=== PATIENT | male | born 1940 | race Caucasian/White ===

== ENCOUNTER → 2016-08-26 | Outpatient (CLI) | payer MEDICARE, BC ==
[2016-05-15 11:00] VITALS: BP 125/57
[~2016-08-26] MED LIST: ALPR0.254 PO; AMLO10TA2 PO; AMLO1CAP15 PO; AMOX500T PO; ASPI81TA2 PO; BUDE10.2 IH; CHOL100013 PO; CLOP75TA PO; DUTA0.5C PO; ESOM20CA PO; ESOM40CA PO; GLIP1TAB5 PO; GLIP5TAB10 PO; HYDR12.53 PO; HYDR25TA9 PO; INSU100I13 SQ; INSU100V8 SQ; SIMV10TA3 PO; SIMV40TA3 PO; TIOT18CA IH
--- NOTE | 2016-08-26 11:47 | RAD ---
CT of the chest without contrast, 08/26/2016: History: Follow-up pulmonary nodule Noncontrast scans were obtained with multiplanar reconstructions produced. Comparison is made to a study from 05/13/2016. There is an 8 mm noncalcified, irregularly marginated nodule in the superior segment of the left lower lobe as seen on image 73 of series #3. It is unchanged since 05/13/2016 as well as an older exam from 01/30/2016. There is streaky atelectasis/infiltrate in the posterior aspect of the left upper lobe abutting the oblique fissure and extending into the lingular region. This density is new. On the previous study there was a similar elongated opacity located more anteriorly the right upper lobe which has resolved. There is a tiny elongated tubular appearing opacity within the minor fissure as best seen on image 149 of series #3. It is slightly lobulated in configuration. This probably represents an enlarged vascular structure or lymphatic vessel. This was not present on the previous study. There is a calcified granuloma in the right lung base posteromedially. There are a few other scattered linear parenchymal opacities in both lungs compatible with scars. No pleural fluid is evident. There is extensive calcific plaquing of the thoracic aorta and its branches including the coronary arteries. No aortic aneurysm is seen. A vascular stent is present in the proximal left subclavian artery. There are calcified mediastinal and hilar lymph nodes compatible with old granulomatous disease. No mediastinal adenopathy is seen. IMPRESSION: 1. Stable small nodule in the superior segment of the left lower lobe. 2. New elongated area of atelectasis/infiltrate in the posterior aspect of the left upper lobe extending into the lingula. 3. A similar area of atelectasis seen more anteriorly in the left upper lobe on the previous study has resolved. 4. New tiny elongated structure along the minor fissure on the right suggesting an enlarged vascular or lymphatic structure. 5. Extensive calcific plaquing of the aorta and coronary arteries. PQRS Compliance Statement: One or more of the following individualized dose reduction techniques were utilized for this examination: 1. Automated exposure control 2. Adjustment of the mA and/or kV according to patient size 3. Use of iterative reconstruction technique
== END | disposition home or self-care (01) ==
LOC: CT 09:41
PROVIDERS: ATTEND Internal Medicine Critical Care Medicine
DX: J98.11 Atelectasis (principal); I70.0 Atherosclerosis of aorta
CPT/HCPCS: 71250

== ENCOUNTER → 2017-03-07 | Outpatient (CLI) | payer MEDICARE, BC ==
[2016-05-15 11:00] VITALS: BP 125/57
[~2017-03-07] MED LIST changes: +ASPI-630 PO; -ASPI81TA2 PO; +BUME2TAB PO; +MAGN400T3 PO; +SUCR1TAB PO
--- NOTE | 2017-03-07 11:07 | RAD ---
CT chest without contrast 03/07/2017 at 0949 hours Indication: Lung nodule Comparison: CT chest 08/26/2016 Technique: Multiple axial noncontrast CT images of the chest were obtained. Coronal and sagittal reformats are provided. Findings: Previously 5 x 5 x 4 mm spiculated nodule in the superior segment left lower lobe currently measures 6 x 10 x 8 mm (series 3, image 75 and series 5, image 75). There is atelectasis and/or scarring involving the lingula. Interval improvement of ventral wall thickening. There is a 4 mm groundglass nodule in the right upper lobe anteriorly (series 3, image 148), new from the prior examination. There are no pathologically enlarged axillary, mediastinal or hilar lymph nodes. Heart size is within normal limits. Three-vessel coronary vascular calcic dictation is identified. Thoracic aorta is normal in course and caliber with moderate atherosclerotic calcification. Left subclavian stent is present. No suspicious osseous lesions are identified. No significant abnormality is identified in the visualized upper abdomen. Impression: Interval growth of a previously 5 x 5 x 4 mm spiculated nodule, currently measuring 6 x 10 x 8 mm. Findings are suspicious for a primary lung malignancy given the growth. Further evaluation with PET/CT or tissue sampling is recommended. No definite pathologically enlarged mediastinal or hilar lymph nodes are present. Visualized portions of the lower neck and upper abdomen are normal. PQRS Compliance Statement: One or more of the following individualized dose reduction techniques were utilized for this examination: 1. Automated exposure control 2. Adjustment of the mA and/or kV according to patient size 3. Use of iterative reconstruction technique
== END | disposition home or self-care (01) ==
LOC: CT 09:30
PROVIDERS: ATTEND Internal Medicine Critical Care Medicine
DX: R91.1 Solitary pulmonary nodule (principal)
CPT/HCPCS: 71250

== ENCOUNTER → 2017-03-10 | Outpatient (CLI) | payer MEDICARE, BC ==
[2017-03-10] VITALS (12 sets, daily range): BP systolic 123–239; BP diastolic 60–98
[~2017-03-10] VITALS: Ht 170.2 cm; Wt 59.4 kg
[~2017-03-10] MED LIST changes: +GELATIN SPONGE SIZE 12-7MM SPONGE. TP ONE; +LABETALOL 20 MG/4 ML DISP.SYRIN. IVP ONE; +LABETALOL 20 MG/4 ML DISP.SYRIN. IVP PRN; +LIDOCAINE 1% / SOD BICARB 8.4% 20 ML VIAL. IJ ONE; +MIDAZOLAM HCL/PF 2 MG/2 ML VIAL. IV ONE; +fentaNYL PF VIAL 100 MCG/2 ML VIAL IV ONE
[2017-03-10 08:59] LABS: BASO # 0.1 x10^3/uL (0.0-0.2); BASO % 1 % (0-3); EOS % 1 % (0-3); HEMATOCRIT 40.6 % (39.0-53.0); HEMOGLOBIN 13.7 g/dL (13.0-17.5); LYMPH # 1.6 x10^3/uL (1.0-4.8); LYMPH % 22 % (24-48); MEAN CORPUSCULAR HEMOGLOBIN 31 pg (25-35); MEAN CORPUSCULAR HGB CONC 34 g/dL (31-37); MEAN CORPUSCULAR VOLUME 90 fL (79-100); MONO % 10 % (0-9); NEUT % 66 % (31-73); PLATELET COUNT 223 x10^3/uL (140-400); RED BLOOD COUNT 4.49 x10^6/uL (4.30-5.70); RED CELL DISTRIBUTION WIDTH 15.2 % (11.5-14.5); WHITE BLOOD COUNT 7.4 x10^3/uL (4.0-11.0)
[2017-03-10 09:04] LABS: CALCIUM 9.3 mg/dL (8.5-10.1); GFR 72.8; POTASSIUM 3.8 mmol/L (3.5-5.1)
[2017-03-10 09:08] LABS: INR 0.9 (0.8-1.1)
--- NOTE | 2017-03-10 12:31 | RAD ---
Ultrasound-guided biopsy, left kidney 03/10/2017 Indication: Proteinuria Discussion: The risks and benefits of the procedure were discussed with the patient. Informed consent was obtained. The patient was brought to the interventional suite and placed in the prone position. A timeout procedure was performed. Conscious sedation was administered. Antihypertensive medication was administered to maintain systolic blood pressure less than 160 mmHg. Ultrasound evaluation demonstrated a left kidney minimal percutaneous biopsy. Once an appropriate site for skin entry been selected 1% lidocaine without epinephrine was administered for local anesthesia. Under direct ultrasound guidance a 17-gauge guiding needle was advanced into the inferior posterior renal cortex. Core biopsy samples were obtained and divided amongst formalin and Patrice's solution. Gelfoam embolization of the biopsy tract was performed as a guiding needle was removed. Manual pressure was held for several minutes. Repeat ultrasound performed demonstrating no significant perinephric hematoma or other evidence of immediate complication. The patient remained clinically stable tolerating the procedure well. A sterile dressing was applied. The patient was transferred to the posterior pararenal area for monitoring. The procedures performed under conscious sedation including continuous cardiopulmonary monitoring via dedicated sedation nurse. Sedation time 40 minutes Impression: Status post ultrasound-guided biopsy of the left kidney
== END | disposition home or self-care (01) ==
LOC: INTRAD 08:31
PROVIDERS: ATTEND Internal Medicine Nephrology
DX: R80.9 Proteinuria, unspecified (principal); E78.00 Pure hypercholesterolemia, unspecified; I10 Essential (primary) hypertension; J44.9 Chronic obstructive pulmonary disease, unspecified; M19.91 Primary osteoarthritis, unspecified site; E11.51 Type 2 diabetes mellitus with diabetic peripheral angiopathy without gangrene; F41.9 Anxiety disorder, unspecified; Z79.01 Long term (current) use of anticoagulants; Z72.0 Tobacco use; Z86.39 Personal history of other endocrine, nutritional and metabolic disease
CPT/HCPCS: 36415; 50200; 76942; 80048; 85025; 85610; 99152; 99153; J2250; J3010; J3490

== ENCOUNTER → 2017-04-03 | Outpatient (CLI) | payer MEDICARE, BC ==
[2017-03-24 15:00] VITALS: BP 181/52
[~2017-04-03] MED LIST changes: +AMLO1TAB12 PO; -GELATIN SPONGE SIZE 12-7MM SPONGE. TP ONE; -LABETALOL 20 MG/4 ML DISP.SYRIN. IVP ONE; -LABETALOL 20 MG/4 ML DISP.SYRIN. IVP PRN; +LEVO500T59 PO; -LIDOCAINE 1% / SOD BICARB 8.4% 20 ML VIAL. IJ ONE; +LOSA50TA2 PO; +METF1000 PO; -MIDAZOLAM HCL/PF 2 MG/2 ML VIAL. IV ONE; +VENTOLIN HFA18 GM INH; -fentaNYL PF VIAL 100 MCG/2 ML VIAL IV ONE
--- NOTE | 2017-04-03 14:26 | RAD ---
PET ONCOLOGY CLINICAL INDICATION: i lung nodule. FDG PET-CT of the Body TECHNIQUE: The patient received an IV injection of 13.66 mCi 18F-FDG in the left antecubital fossa. After an initial uptake phase of approximately 60-90 minutes, a CT scan without oral contrast, without IV contrast was acquired. Subsequently, positron emission tomography images from the skull base to mid thigh were obtained. CT, PET and fused images were reconstructed in transaxial, coronal, and sagittal projections and interpreted from a workstation. The patient's plasma glucose was 162 mg/dl. PRIOR STUDIES: 03/14/2016 CORRELATIVE STUDIES: CT chest from 03/07/2017 FINDINGS: CT: Limited study due to lack of IV contrast. The visualized noncontrast sections through the head and neck are within normal limits. Bilateral carotid bulb atherosclerotic disease. No axillary adenopathy. Small calcified mediastinal and hilar lymph nodes. Heart is normal in size. Coronary artery calcifications noted. Atherosclerotic disease of the aortic arch noted. Subsegmental atelectasis of the lingula. Breathing motion artifact noted in the lung bases limiting optimal evaluation. Relatively stable opacity seen in the superior segment of the left upper lobe measuring 9 x 6 mm, previously 10 x 6 mm (PET/CT from 03/14/2016). Stable subtle groundglass nodule measuring 5 mm in the right upper lobe (series 3 image 149). Noncontrast appearance of the liver, spleen, pancreas, adrenal glands are within normal limits. Left perinephric inflammatory changes noted. 1.2 cm hyperdense cyst is seen within inferior pole of the left kidney, new compared to prior study. Nonobstructing left renal stone. Severe scarring disease of the aorta and bilateral iliac arteries. No bowel obstruction. Bladder within normal limits. Prostate and seminal vesicles show no mass lesion. Small sliding hilar hernia. No suspicious lytic or blastic osseous lesions. PET: The left upper lobe nodule demonstrates no significant metabolic activity with SUV max of 1.0 Stable hypermetabolic left parotid nodule. No other areas of abnormal hypermetabolic activity. IMPRESSION: PET-CT from the skull base to mid thigh demonstrates: 1. Relatively stable left upper lobe pulmonary nodule demonstrating no significant hypermetabolic activity. Although this is stable dating back to February 2016, primary lung malignancy not ruled out. Short-term follow-up chest CT in 3-6 months recommended. 2. Stable groundglass nodule in the right upper lobe without hypermetabolic activity. 3. Cholelithiasis. 4. Severe atherosclerotic disease of the aorta and its major branches. 5. Left perinephric inflammatory changes with new hyperdense lesion in the inferior pole. While this may represent minimally complicated cysts containing proteinaceous debris/hemorrhagic products, further evaluation with contrast CT or MRI is recommended. Inflammatory changes in the left perinephric fat may represent infectious process. Correlate with urinalysis.
== END | disposition home or self-care (01) ==
LOC: PETSC 11:11
PROVIDERS: ATTEND Internal Medicine Critical Care Medicine
DX: I70.0 Atherosclerosis of aorta (principal); K80.20 Calculus of gallbladder without cholecystitis without obstruction
CPT/HCPCS: 78815; A9552

== ENCOUNTER 2017-05-12 12:08 | Inpatient (IN) | payer MEDICARE, BC ==
[~2017-05-12] VITALS: Ht 170.2 cm; Wt 55.8 kg
--- NOTE | 2017-05-12 12:29 | EKG ---
[facility] [address] [place] [address] Test Date: 2017-05-12 Test Time: 12:26:56 Pat Name: LILIANA CONWAY Department: Room: Gender: M Invoice Checker: : 1940 Requested By: VALARIE BAIRES Order Number: [id number] Reading MD: David Britton MD Measurements Intervals [place] Rate: 106 P: 64 ME: 178 QRS: -52 QRSD: 90 T: 95 QT: 328 QTc: 437 Interpretive Statements SINUS TACHYCARDIA ABNORMAL LEFT AXIS DEVIATION INCOMPLETE RIGHT BUNDLE BRANCH BLOCK Electronically Signed On 05-12-2017 16:22:25 SPECIAL CLIENT BUS DRIVER by David Britton MD
[2017-05-12 12:46] LABS: BASO % 0 % (0-3); EOS % 0 % (0-3); HEMATOCRIT 39.6 % (39.0-53.0); HEMOGLOBIN 13.5 g/dL (13.0-17.5); LYMPH # 1.1 x10^3/uL (1.0-4.8); LYMPH % 10 % (24-48); MEAN CORPUSCULAR HEMOGLOBIN 31 pg (25-35); MEAN CORPUSCULAR HGB CONC 34 g/dL (31-37); MEAN CORPUSCULAR VOLUME 91 fL (79-100); MONO % 6 % (0-9); NEUT % 83 % (31-73); PLATELET COUNT 290 x10^3/uL (140-400); RED BLOOD COUNT 4.36 x10^6/uL (4.30-5.70); RED CELL DISTRIBUTION WIDTH 13.7 % (11.5-14.5); WHITE BLOOD COUNT 10.7 x10^3/uL (4.0-11.0)
[2017-05-12] MEDS ORDERED: ONDANSETRON PF 4 MG/2 ML VIAL. IV ONE (13:00)
[2017-05-12 13:02] LABS: CALCIUM 9.1 mg/dL (8.5-10.1); CREATININE 1.2 mg/dL (0.7-1.3); POTASSIUM 3.7 mmol/L (3.5-5.1)
[2017-05-12 13:08] LABS: ALBUMIN 2.3 g/dL (3.4-5.0); ALBUMIN/GLOBULIN RATIO 0.5 (1.0-1.7); TOTAL BILIRUBIN 0.2 mg/dL (0.2-1.0); TOTAL PROTEIN 6.6 g/dL (6.4-8.2)
[2017-05-12] MEDS ORDERED: fentaNYL PF VIAL 100 MCG/2 ML VIAL IV ONE (13:15)
[2017-05-12] MEDS ORDERED: CONTRAST GIVEN MC PRN (14:45)
[2017-05-12] MEDS ORDERED: IOHEXOL 300 MG/ML 100ML VIAL. IV ONE (14:45)
--- NOTE | 2017-05-12 15:07 | PHYS DOC ---
Past Medical History Past Medical History: Arthritis, COPD, Diabetes-Type II, Other Additional Past Medical Histor: PVD Past Surgical History: Angioplasty, Other Additional Past Surgical Histo: R)ENDARECTOMY X2,R)InguinalHERNIA X2,STENTS PLACED IN R) LEG Additional Information: Cutting way down-now a little less than a PPD. Alcohol Use: None Drug Use: None Adult General Chief Complaint Chief Complaint: ABDOMINAL PAIN HPI HPI Patient is a 77 year old male who presents with midepigastric abdominal pain starting 2 weeks prior to ED arrival. pain is rated moderate to severe.Pain is definitely worse with eating and is associated with multiple loose stools. Patient has had decreased oral intake secondary to pain. Patient reports some nausea but denies vomiting. eyes bloody stools or dark tarry stools.. Denies fever chills or sweats. Denies flank pain, back pain chest pain and shortness of breath. No prior abdominal surgeries. No other acute symptoms or complaints. Patient is a current smoker. [] Review of Systems Review of Systems Review symptoms as per history of present illness. All other review symptoms are negative. All other systems were reviewed and found to be within normal limits, except as documented in this note. Current Medications Current Medications Current Medications Medications (Trade) Dose Ordered Sig/Dwight Start Time Stop Time Status Last Admin Dose Admin Fentanyl Citrate (Fentanyl 2ml Vial) 50 mcg 1X ONCE 05/12/17 13:15 05/12/17 13:16 DC 05/12/17 13:56 50 MCG Info (Do NOT chart on this entry -- for MONITORING) 1 each PRN DAILY PRN 05/12/17 14:45 05/14/17 14:44 Iohexol (Omnipaque 300 Mg/ml) 60 ml 1X ONCE 05/12/17 14:45 05/12/17 14:46 DC 05/12/17 14:39 60 ML Ondansetron HCl (Zofran) 4 mg 1X ONCE 05/12/17 13:00 05/12/17 13:01 DC 05/12/17 13:55 4 MG Allergies Allergies Allergies Coded Allergies Type Severity Reaction Last Updated Verified No Known Drug Allergies 02/15/16 No Physical Exam Physical Exam Constitutional: Well developed, well nourished, no acute distress, non-toxic appearance. [] HENT: Normocephalic, atraumatic, bilateral external ears normal, oropharynx moist, no oral exudates, nose normal. [] Eyes: PERRLA, EOMI, conjunctiva normal, no discharge. [] Neck: Normal range of motion, no tenderness, supple, no stridor. [] Cardiovascular:Heart rate regular rhythm, no murmur [] Lungs & Thorax: Bilateral breath sounds clear to auscultation [] Abdomen: Bowel sounds normal, soft, epigastric pain/tenderness. No rebound rigidity or guarding.. [] Skin: Warm, dry, no erythema, no rash. [] Back: No tenderness, no CVA tenderness. [] Extremities: No tenderness, no cyanosis, no clubbing, ROM intact, no edema. [] Current Patient Data Vital Signs Vital Signs Date Time Temp Pulse Resp B/P (MAP) Pulse Ox O2 Delivery O2 Flow Rate FiO2 05/12/17 13:56 17 97 Room Air 05/12/17 12:27 98.1 114 151/76 (101) 98.1 Lab Values Laboratory Tests Test 05/12/17 12:31 White Blood Count 10.7 x10^3/uL (4.0-11.0) Red Blood Count 4.36 x10^6/uL (4.30-5.70) Hemoglobin 13.5 g/dL (13.0-17.5) Hematocrit 39.6 % (39.0-53.0) Mean Corpuscular Volume 91 fL (79-100) Mean Corpuscular Hemoglobin 31 pg (25-35) Mean Corpuscular Hemoglobin Concent 34 g/dL (31-37) Red Cell Distribution Width 13.7 % (11.5-14.5) Platelet Count 290 x10^3/uL (140-400) Neutrophils (%) (Auto) 83 % (31-73) H Lymphocytes (%) (Auto) 10 % (24-48) L Monocytes (%) (Auto) 6 % (0-9) Eosinophils (%) (Auto) 0 % (0-3) Basophils (%) (Auto) 0 % (0-3) Neutrophils # (Auto) 8.9 x10^3uL (1.8-7.7) H Lymphocytes # (Auto) 1.1 x10^3/uL (1.0-4.8) Monocytes # (Auto) 0.7 x10^3/uL (0.0-1.1) Eosinophils # (Auto) 0.0 x10^3/uL (0.0-0.7) Basophils # (Auto) 0.0 x10^3/uL (0.0-0.2) Sodium Level 140 mmol/L (136-145) Potassium Level 3.7 mmol/L (3.5-5.1) Chloride Level 102 mmol/L (98-107) Carbon Dioxide Level 30 mmol/L (21-32) Anion Gap 8 (6-14) Blood Urea Nitrogen 25 mg/dL (8-26) Creatinine 1.2 mg/dL (0.7-1.3) Estimated GFR (Cockcroft-Gault) 59.0 BUN/Creatinine Ratio 21 (6-20) H Glucose Level 100 mg/dL (70-99) H Calcium Level 9.1 mg/dL (8.5-10.1) Total Bilirubin 0.2 mg/dL (0.2-1.0) Aspartate Amino Transferase (AST) 14 U/L (15-37) L Alanine Aminotransferase (ALT) 9 U/L (16-63) L Alkaline Phosphatase 92 U/L (46-116) Total Protein 6.6 g/dL (6.4-8.2) Albumin 2.3 g/dL (3.4-5.0) L Albumin/Globulin Ratio 0.5 (1.0-1.7) L Lipase 42 U/L (73-393) L Laboratory Tests 05/12/17 12:31 Laboratory Tests 05/12/17 12:31 EKG EKG [EKG: Sinus tach, rate 106, no acute ST-T wave changes, right bundle branch block, low amplitude. QTC 437.] Radiology/Procedures Radiology/Procedures [CT abdomen pelvis:] Course & Med Decision Making Course & Med Decision Making Pertinent Labs and Imaging studies reviewed. (See chart for details) [Nondescript upper abdominal pain. Lab work reviewed. IV fluids pain medication given. CT imaging pending. Patient resting comfortably on valuation. Care checked out to oncoming ERP at 1500.] Dragon Disclaimer Dragon Disclaimer This electronic medical record was generated, in whole or in part, using a voice recognition dictation system. Departure Departure Impression: Primary Impression: Abdominal pain Referrals: AUGUSTINA DECKER MD (PCP) VALARIE BAIRES DO May 12, 2017 15:07
--- NOTE | 2017-05-12 15:14 | RAD ---
Indication: Epigastric pain. Technique: Axial images and coronal and sagittal reformatted images are provided. 60 mL of intravenous Omnipaque 300 was administered without complication. Comparison PET/ CT is from April 03, 2017. One or more of the following individualized dose reduction techniques were utilized for this examination: 1. Automated exposure control 2. Adjustment of the mA and/or kV according to patient size 3. Use of iterative reconstruction technique Findings: Bands of linear atelectasis is noted on the left. There is no pleural effusion. The heart is not enlarged. Coronary artery calcifications are noted. Liver is unremarkable. There is cholelithiasis. There is a small amount of perisplenic fluid anteriorly, may be subcapsular. This is crescentic in shape measuring up to 6 mm short axis. Pancreas is unremarkable. There is no adrenal mass. Kidneys are symmetrically perfused. Calcifications in the right kidney appear vascular. There are vascular calcifications in the left kidney along with a nonobstructing calculus measuring 4 mm. Subcentimeter probable renal cysts bilaterally are noted. There is extensive atheromatous disease in the abdominal aorta without aneurysm. Infrarenal abdominal aortic aneurysm measures 2.6 cm. Lack of oral contrast limits evaluation of bowel. There is no small bowel obstruction or mural thickening. Colon is unremarkable. Normal appendix is noted. There is mild prostate enlargement. Prostate calcifications are noted. There is only mild distention of the bladder which is grossly unremarkable. Calcified phleboliths are present. There is increased stool in the rectal vault. There are minimal degenerative changes in the spine. Impression: 1. Small amount of perisplenic fluid that appears to be subcapsular. Please correlate with any trauma history. Finding is not definitely present on the previous PET/CT although that exam was without contrast. The last postcontrast imaging to include this region is from May 13, 2016, fluid collection appears to be a change from that study. 2. Cholelithiasis. 3. Infrarenal abdominal aortic aneurysm. 4. Suspected nonobstructing left renal calculus. Renal artery vascular calcifications bilaterally.
[2017-05-12 15:42] LABS: BILIRUBIN,URINE NEGATIVE (NEG); GLUCOSE,URINE NEGATIVE (NEG); NITRITE,URINE NEGATIVE (NEG); PROTEIN,URINE >=300 mg/dL (NEG-TRACE); UROBILINOGEN,URINE 0.2 mg/dL (0.2 mg/dL)
[2017-05-12] MEDS ORDERED: MORPHINE SULFATE 4 MG/ML DISP.SYRIN. IV PRN (15:45)
[2017-05-12] MEDS ORDERED: ONDANSETRON PF 4 MG/2 ML VIAL. IV PRN (15:45)
[2017-05-12] MEDS ORDERED: IV 1/2 NORMAL SALINE 1,000 ML IV SCH (16:15)
[2017-05-12 16:16] LABS: BACTERIA,URINE 0 /HPF (0-FEW); RBC,URINE 0 /HPF (0-2)
[2017-05-12] MEDS ORDERED: fentaNYL PF VIAL 100 MCG/2 ML VIAL IV PRN (17:15)
[2017-05-12] MEDS: DEXTROSE 50% 25 GM / 50ML DISP.SYRIN. IV PRN (17:22)
[2017-05-12] MEDS ORDERED: AMLO1TAB15 PO (17:45)
--- NOTE | 2017-05-12 18:39 | HP ---
ADMIT DATE: 05/12/2017 CHIEF COMPLAINT: Abdominal pain, nausea and vomiting. HISTORY OF PRESENT ILLNESS: This patient is a 77-year-old gentleman that has significant COPD and is a diabetic with severe peripheral vascular disease. He also has a known history of coronary artery disease. The patient has been at home and for the past few days, he started having problems with midepigastric abdominal pain and also episodes of nausea. This got worse over the last week and he has not been able to keep much down for several days and has been having several episodes of diarrhea every day. He has not been able to maintain much of a p.o. intake due to the nausea as well as some of the vomiting. Today the vomiting has stopped but he continues to have nausea and continues to have abdominal pain. The patient came to the Emergency Room where he was seen and evaluated and it was decided to admit him. At the time that I saw him, he denies having any chest pains and he denies having any significant shortness of breath, but feels very weak and starting to get dizzy if he tries to get up. The patient is a current smoker with severe COPD. PAST MEDICAL HISTORY: Significant for coronary artery disease, peripheral vascular disease, COPD, diabetes, arthritis, hypertension. MEDICATIONS: Please see the MRAD. PHYSICAL EXAMINATION: GENERAL: The patient is an elderly gentleman that is in acute distress. HEENT: Pupils are reactive. Oral mucosa dry. NECK: Supple. No JVD. LUNGS: Breath sounds are markedly decreased. There is mild wheezing, but no rales. HEART: Regular rate and rhythm. S1, S2, no S3, no S4. ABDOMEN: Soft. There is epigastric and right upper quadrant tenderness present. The bowel sounds were present. EXTREMITIES: No edema. Poor pulses. NEUROLOGIC: Grossly intact. IMPRESSION: This patient comes in with GI symptoms and abdominal pain, mostly over the epigastrium and right upper quadrant. A CAT scan was done that shows that he has gallstones, but also evidence of a possible hematoma around the spleen was seen. The patient denies any recent trauma, no falls, no accidents. At this point, I would like to admit the patient and start him on IV fluids because he appears to be dehydrated and consult the surgeons to evaluate both the spleen as well as the situation with the gallbladder and depending on their recommendations, we will then decide about further workup and treatment. AUGUSTINA DECKER MD DR: Danisha JOB#: [id number] / [id number]
[2017-05-12 19:00] VITALS: BP 151/76
[2017-05-12] MEDS ORDERED: NON FORMULARY ITEM (Albuterol Sulfate (Ventolin Hfa Inhaler) 2 PUFF) INH SCH (20:00)
[2017-05-12] MEDS: IPRATRPIUM/ALBUTEROL 0.5/2.5MG 3 ML NEBU. NEB SCH (20:20)
[2017-05-12] MEDS: BUDESONIDE 0.5 MG/2 ML NEBU. NEB SCH (20:20)
[2017-05-12] MEDS: SUCRALFATE 1 GM TABLET. PO SCH (20:55)
[2017-05-12] MEDS: SIMVASTATIN 40 MG TABLET. PO SCH (20:55)
[2017-05-12] MEDS ORDERED: INSULIN DETEMIR 300 UNITS/3 ML INSULN.PEN. SQ SCH (21:00)
[2017-05-12] MEDS ORDERED: NON FORMULARY ITEM (Budesonide/Formoterol Fumarate (Symbicort 160-4.5 Mcg Inhaler) 2 PUFF) IH SCH (21:00)
[2017-05-12 23:00] VITALS: BP 136/61
[2017-05-13 03:00] VITALS: BP 108/56
[2017-05-13 05:20] LABS: BASO % 0 % (0-3); EOS % 0 % (0-3); HEMATOCRIT 35.5 % (39.0-53.0); HEMOGLOBIN 11.9 g/dL (13.0-17.5); LYMPH # 0.9 x10^3/uL (1.0-4.8); LYMPH % 10 % (24-48); MEAN CORPUSCULAR HEMOGLOBIN 30 pg (25-35); MEAN CORPUSCULAR HGB CONC 34 g/dL (31-37); MEAN CORPUSCULAR VOLUME 90 fL (79-100); MONO % 8 % (0-9); NEUT % 81 % (31-73); PLATELET COUNT 259 x10^3/uL (140-400); RED BLOOD COUNT 3.96 x10^6/uL (4.30-5.70); RED CELL DISTRIBUTION WIDTH 13.5 % (11.5-14.5); WHITE BLOOD COUNT 8.8 x10^3/uL (4.0-11.0)
[2017-05-13 05:44] LABS: CALCIUM 8.8 mg/dL (8.5-10.1); GFR 72.8
[2017-05-13] MEDS: IPRATRPIUM/ALBUTEROL 0.5/2.5MG 3 ML NEBU. NEB SCH ×4 (07:27→19:59)
[2017-05-13] MEDS: BUDESONIDE 0.5 MG/2 ML NEBU. NEB SCH ×2 (07:27→20:00)
[2017-05-13 07:30] VITALS: BP 108/55
[2017-05-13] MEDS ORDERED: GLIPIZIDE PO SCH (09:00)
[2017-05-13] MEDS ORDERED: CLOPIDOGREL BISULFATE 75 MG TABLET PO SCH (09:00)
[2017-05-13] MEDS ORDERED: BUMETANIDE 1 MG TABLET. PO SCH (09:00)
[2017-05-13] MEDS ORDERED: METFORMIN HCL PO SCH (09:00)
[2017-05-13] MEDS ORDERED: NON FORMULARY ITEM (Tiotropium Bromide (Spiriva) 2 PUFF) IH SCH (09:00)
--- NOTE | 2017-05-13 09:11 | PDOC2 ---
ILEANA BREEN SHEET SEWER 05/13/17 0911: CONSULT Date of Consult Date of Consult DATE: 05/13/17 TIME: 09:03 Reason for Consult Reason for Consult: cholelithiasis, splenic hematoma Referring Physician Referring Physician: ER Identification/Chief Complaint Chief Complaint abdominal pain Problems: Source Source: Chart review, Patient History of Present Illness Reason for Visit: Reports epigastric pain x 1 year after eating. The last 2 weeks the pain has been worsening with pain occurring every time he eats. Reports weight loss due to this. Associated nausea, no emesis. Denies any recent trauma/injury to abdomen--on plavix Past Medical History Cardiovascular: CAD, HTN, Hyperlipidemia Pulmonary: COPD Psych: Addictions Endocrine: Diabetes Past Surgical History Past Surgical History: Hernia Repair, Other Family History Family History: No Significant Social History <1 pack per day ALCOHOL: none Drugs: None Lives: with Family Current Problem List Problem List Problems Medical Problems: (1) Abdominal pain Status: Acute Current Medications Current Medications Current Medications Ondansetron HCl (Zofran) 4 mg 1X ONCE IV Last administered on 05/12/17 13:55 ; Start 05/12/17 at 13:00; Stop 05/12/17 at 13:01; Status DC Fentanyl Citrate (Fentanyl 2ml Vial) 50 mcg 1X ONCE IV Last administered on 13:56; Start 05/12/17 at 13:15; Stop 05/12/17 at 13:16; Status DC Iohexol (Omnipaque 300 Mg/ml) 60 ml 1X ONCE IV Last administered on 14:39; Start 05/12/17 at 14:45; Stop 05/12/17 at 14:46; Status DC Info (Do NOT chart on this entry -- for MONITORING) 1 each PRN DAILY PRN MC SEE COMMENTS; Start 05/12/17 at 14:45; Stop 05/14/17 at 14:44 Ondansetron HCl (Zofran) 4 mg PRN Q8HRS PRN IV NAUSEA/VOMITING; Start at 15:45; Stop 05/13/17 at 15:44 Morphine Sulfate 2 mg PRN Q2HR PRN IV PAIN; Start 05/12/17 at 15:45; Stop at 15:44 Sodium Chloride 1,000 ml @ 80 mls/hr [id number] IV Last administered on 16:13; Start 05/12/17 at 16:15; Stop 05/13/17 at 04:44; Status DC Fentanyl Citrate (Fentanyl 2ml Vial) 50 mcg PRN Q3HRS PRN IV PAIN; Start 05/12 at 17:15 Dextrose (Dextrose 50%-Water Syringe) 12.5 gm PRN Q15MIN PRN IV SEE COMMENTS Last administered on 05/12/17 17:22; Start 05/12/17 at 17:15 Alprazolam (Xanax) 0.25 mg DAILY PO ; Start 05/13/17 at 09:00 Aspirin (Children'S Aspirin) 81 mg DAILY PO ; Start 05/13/17 at 09:00 Clopidogrel Bisulfate (Plavix) 75 mg DAILY PO ; Start 05/13/17 at 09:00 Dutasteride (Avodart) 0.5 mg DAILY PO ; Start 05/13/17 at 09:00 Magnesium Oxide (Magnesium Oxide) 400 mg DAILY PO ; Start 05/13/17 at 09:00 Simvastatin (Zocor) 40 mg QHS PO Last administered on 05/12/17 20:55; Start 05/12/17 at 21:00 Sucralfate (Carafate) 1 gm QID PO Last administered on 05/12/17 20:55; Start 05/12/17 at 21:00 Non-Formulary Medication 2 puff Q4HRS INH ; Start 05/12/17 at 20:00; Status UNV Non-Formulary Medication 1 tab QODAY PO ; Start 05/14/17 at 09:00; Status UNV Non-Formulary Medication 2 puff BID IH ; Start 05/12/17 at 21:00; Status UNV Bumetanide (Bumex) 1 mg QODAY PO ; Start 05/13/17 at 09:00 Vitamin D (Vitamin D3) 1,000 unit DAILY PO ; Start 05/13/17 at 09:00 Pantoprazole Sodium (Protonix) 40 mg DAILYAC PO ; Start 05/13/17 at 07:30 Non-Formulary Medication 2 each BID94 PO ; Start 05/13/17 at 09:00; Status UNV Insulin Detemir (Levemir) 30 units QHS SQ Last administered on 05/12/17 21:01 ; Start 05/12/17 at 21:00; Stop 05/13/17 at 07:12; Status DC Non-Formulary Medication 2 puff DAILY IH ; Start 05/13/17 at 09:00; Status UNV Albuterol/ Ipratropium (Duoneb) 3 ml RTQID NEB Last administered on 05/13/17 07:27; Start 05/12/17 at 20:00 Budesonide (Pulmicort) 0.5 mg RTBID NEB Last administered on 05/13/17 07:27; Start 05/12/17 at 20:00 Amlodipine Besylate (Norvasc) 10 mg DAILY PO ; Start 05/13/17 at 09:00 Losartan Potassium (Cozaar) 100 mg DAILY PO ; Start 05/13/17 at 09:00 Glipizide (Glucotrol) 10 mg BIDBFRMEAL PO ; Start 05/13/17 at 07:30 Metformin HCl (Glucophage) 1,000 mg BIDWMEALS PO ; Start 05/14/17 at 17:00 Insulin Detemir (Levemir) 12 units QHS SQ ; Start 05/13/17 at 21:00 Active Scripts Active Reported Exforge 10-320 Mg Tablet (Amlodipine/Valsartan) 1 Each Tablet 1 Tab PO QODAY Ventolin Hfa Inhaler (Albuterol Sulfate) 18 Gm Hfa.aer.ad 2 Puff INH Q4HRS Bumetanide 2 Mg Tablet 2 Mg PO EVERY OTHER DAY Magnesium Oxide 400 Mg Tablet 1 Tab PO DAILY Sucralfate 1 Gm Tablet 1 Tab PO QID Spiriva (Tiotropium [place]) 18 Mcg Cap.w.dev 2 Puff IH DAILY Symbicort 160-4.5 Mcg Inhaler (Budesonide/Formoterol Fumarate) 10.2 Gm Hfa.aer.ad 2 Puff IH BID Lantus (Insulin Glargine,Hum.rec.anlog) 100 Unit/1 Ml Vial 30 Unit SQ HS Glipizide-Metformin 5-500 Mg (Glipizide/Metformin Hcl) 1 Each Tablet 2 Each PO BID94 Nexium Capsule (Esomeprazole Magnesium) 40 Mg Capsule.dr 1 Cap PO DAILY Avodart (Dutasteride) 0.5 Mg Capsule 1 Cap PO DAILY Simvastatin 40 Mg Tablet 1 Tab PO QHS Aspirin 81 Mg Tab.chew 1 Tab PO DAILY Alprazolam 0.25 Mg Tablet 1 Tab PO DAILY Vitamin D (Cholecalciferol (Vitamin D3)) 1,000 Unit Capsule 1 Cap PO DAILY Clopidogrel (Clopidogrel Bisulfate) 75 Mg Tablet 1 Tab PO DAILY Allergies Allergies: Coded Allergies: No Known Drug Allergies (Unverified , 02/15/16) ROS General: No: Chills, Other (fevers ) PSYCHOLOGICAL ROS: No: Anxiety, Depression Eyes: No Blurry vision, No Double vision HEENT: No: Heacaches, Sore Throat Hematological and Lymphatic: YES: Bleeding Problems, No: Blood Clots Respiratory: YES: Cough, SOB with excertion Cardiovascular: No Chest Pain, No Palpitations Gastrointestinal: Yes Other (see hpi) Genitourinary: No Dysuria, No Hematuria Musculoskeletal: Yes Joint Pain, No Muscle Pain Neurological: No Confusion, No Numbness/Tingling Skin: No Pruritus, No Rash Physical Exam General: Alert, Oriented X3, Cooperative, No acute distress HEENT: PERRLA, Mucous membr. moist/pink Lungs: Clear to auscultation, Normal air movement Heart: Regular rate, Normal S1, Normal S2, No murmurs Abdomen: Soft, Other (mild tenderness epigastric) Extremities: No clubbing, No cyanosis Skin: No rashes, No breakdown Neuro: Normal gait, Normal speech Psych/Mental Status: Mental status NL, Mood NL MUSCULOSKELETAL: No deformity, No swelling Vitals VITALS Vital Signs Date Time Temp Pulse Resp B/P (MAP) Pulse Ox O2 Delivery O2 Flow Rate FiO2 05/13/17 08:20 Room Air 05/13/17 07:32 100 05/13/17 07:30 97.7 99 18 108/55 (72) 97.7 Labs Labs Laboratory Tests Test 05/12/17 12:31 05/12/17 15:22 05/12/17 17:08 05/12/17 18:14 White Blood Count 10.7 x10^3/uL (4.0-11.0) Red Blood Count 4.36 x10^6/uL (4.30-5.70) Hemoglobin 13.5 g/dL (13.0-17.5) Hematocrit 39.6 % (39.0-53.0) Mean Corpuscular Volume 91 fL (79-100) Mean Corpuscular Hemoglobin 31 pg (25-35) Mean Corpuscular Hemoglobin Concent 34 g/dL (31-37) Red Cell Distribution Width 13.7 % (11.5-14.5) Platelet Count 290 x10^3/uL (140-400) Neutrophils (%) (Auto) 83 % (31-73) Lymphocytes (%) (Auto) 10 % (24-48) Monocytes (%) (Auto) 6 % (0-9) Eosinophils (%) (Auto) 0 % (0-3) Basophils (%) (Auto) 0 % (0-3) Neutrophils # (Auto) 8.9 x10^3uL (1.8-7.7) Lymphocytes # (Auto) 1.1 x10^3/uL (1.0-4.8) Monocytes # (Auto) 0.7 x10^3/uL (0.0-1.1) Eosinophils # (Auto) 0.0 x10^3/uL (0.0-0.7) Basophils # (Auto) 0.0 x10^3/uL (0.0-0.2) Sodium Level 140 mmol/L (136-145) Potassium Level 3.7 mmol/L (3.5-5.1) Chloride Level 102 mmol/L (98-107) Carbon Dioxide Level 30 mmol/L (21-32) Anion Gap 8 (6-14) Blood Urea Nitrogen 25 mg/dL (8-26) Creatinine 1.2 mg/dL (0.7-1.3) Estimated GFR (Cockcroft-Gault) 59.0 BUN/Creatinine Ratio 21 (6-20) Glucose Level 100 mg/dL (70-99) Calcium Level 9.1 mg/dL (8.5-10.1) Total Bilirubin 0.2 mg/dL (0.2-1.0) Aspartate Amino Transf (AST/SGOT) 14 U/L (15-37) Alanine Aminotransferase (ALT/SGPT) 9 U/L (16-63) Alkaline Phosphatase 92 U/L (46-116) Total Protein 6.6 g/dL (6.4-8.2) Albumin 2.3 g/dL (3.4-5.0) Albumin/Globulin Ratio 0.5 (1.0-1.7) Lipase 42 U/L (73-393) Urine Collection Type Unknown Urine Color Yellow Urine Clarity Clear Urine pH 6.0 Urine Specific [place] >=1.030 Urine Protein >=300 mg/dL (NEG-TRACE) Urine Glucose (UA) Negative mg/dL (NEG) Urine Ketones (Stick) Negative mg/dL (NEG) Urine Blood Negative (NEG) Urine Nitrite Negative (NEG) Urine Bilirubin Negative (NEG) Urine Urobilinogen Dipstick 0.2 mg/dL (0.2 mg/dL) Urine Leukocyte Esterase Negative (NEG) Urine RBC 0 /HPF (0-2) Urine WBC 1-4 /HPF (0-4) Urine Renal Epithelial Cells Occ /LPF Urine Bacteria 0 /HPF (0-FEW) Urine Hyaline Casts Moderate /HPF Urine Granular Casts Occasional /HPF Urine Mucus Mod /LPF Glucose (Fingerstick) 44 mg/dL (70-99) 100 mg/dL (70-99) Test 05/12/17 20:42 05/13/17 04:34 05/13/17 07:41 Glucose (Fingerstick) 156 mg/dL (70-99) 104 mg/dL (70-99) White Blood Count 8.8 x10^3/uL (4.0-11.0) Red Blood Count 3.96 x10^6/uL (4.30-5.70) Hemoglobin 11.9 g/dL (13.0-17.5) Hematocrit 35.5 % (39.0-53.0) Mean Corpuscular Volume 90 fL (79-100) Mean Corpuscular Hemoglobin 30 pg (25-35) Mean Corpuscular Hemoglobin Concent 34 g/dL (31-37) Red Cell Distribution Width 13.5 % (11.5-14.5) Platelet Count 259 x10^3/uL (140-400) Neutrophils (%) (Auto) 81 % (31-73) Lymphocytes (%) (Auto) 10 % (24-48) Monocytes (%) (Auto) 8 % (0-9) Eosinophils (%) (Auto) 0 % (0-3) Basophils (%) (Auto) 0 % (0-3) Neutrophils # (Auto) 7.1 x10^3uL (1.8-7.7) Lymphocytes # (Auto) 0.9 x10^3/uL (1.0-4.8) Monocytes # (Auto) 0.7 x10^3/uL (0.0-1.1) Eosinophils # (Auto) 0.0 x10^3/uL (0.0-0.7) Basophils # (Auto) 0.0 x10^3/uL (0.0-0.2) Sodium Level 141 mmol/L (136-145) Potassium Level 4.0 mmol/L (3.5-5.1) Chloride Level 105 mmol/L (98-107) Carbon Dioxide Level 32 mmol/L (21-32) Anion Gap 4 (6-14) Blood Urea Nitrogen 19 mg/dL (8-26) Creatinine 1.0 mg/dL (0.7-1.3) Estimated GFR (Cockcroft-Gault) 72.8 Glucose Level 98 mg/dL (70-99) Calcium Level 8.8 mg/dL (8.5-10.1) Laboratory Tests Test 05/12/17 12:31 05/12/17 15:22 05/12/17 17:08 05/12/17 18:14 White Blood Count 10.7 x10^3/uL (4.0-11.0) Red Blood Count 4.36 x10^6/uL (4.30-5.70) Hemoglobin 13.5 g/dL (13.0-17.5) Hematocrit 39.6 % (39.0-53.0) Mean Corpuscular Volume 91 fL (79-100) Mean Corpuscular Hemoglobin 31 pg (25-35) Mean Corpuscular Hemoglobin Concent 34 g/dL (31-37) Red Cell Distribution Width 13.7 % (11.5-14.5) Platelet Count 290 x10^3/uL (140-400) Neutrophils (%) (Auto) 83 % (31-73) Lymphocytes (%) (Auto) 10 % (24-48) Monocytes (%) (Auto) 6 % (0-9) Eosinophils (%) (Auto) 0 % (0-3) Basophils (%) (Auto) 0 % (0-3) Neutrophils # (Auto) 8.9 x10^3uL (1.8-7.7) Lymphocytes # (Auto) 1.1 x10^3/uL (1.0-4.8) Monocytes # (Auto) 0.7 x10^3/uL (0.0-1.1) Eosinophils # (Auto) 0.0 x10^3/uL (0.0-0.7) Basophils # (Auto) 0.0 x10^3/uL (0.0-0.2) Sodium Level 140 mmol/L (136-145) Potassium Level 3.7 mmol/L (3.5-5.1) Chloride Level 102 mmol/L (98-107) Carbon Dioxide Level 30 mmol/L (21-32) Anion Gap 8 (6-14) Blood Urea Nitrogen 25 mg/dL (8-26) Creatinine 1.2 mg/dL (0.7-1.3) Estimated GFR (Cockcroft-Gault) 59.0 BUN/Creatinine Ratio 21 (6-20) Glucose Level 100 mg/dL (70-99) Calcium Level 9.1 mg/dL (8.5-10.1) Total Bilirubin 0.2 mg/dL (0.2-1.0) Aspartate Amino Transf (AST/SGOT) 14 U/L (15-37) Alanine Aminotransferase (ALT/SGPT) 9 U/L (16-63) Alkaline Phosphatase 92 U/L (46-116) Total Protein 6.6 g/dL (6.4-8.2) Albumin 2.3 g/dL (3.4-5.0) Albumin/Globulin Ratio 0.5 (1.0-1.7) Lipase 42 U/L (73-393) Urine Collection Type Unknown Urine Color Yellow Urine Clarity Clear Urine pH 6.0 Urine Specific [place] >=1.030 Urine Protein >=300 mg/dL (NEG-TRACE) Urine Glucose (UA) Negative mg/dL (NEG) Urine Ketones (Stick) Negative mg/dL (NEG) Urine Blood Negative (NEG) Urine Nitrite Negative (NEG) Urine Bilirubin Negative (NEG) Urine Urobilinogen Dipstick 0.2 mg/dL (0.2 mg/dL) Urine Leukocyte Esterase Negative (NEG) Urine RBC 0 /HPF (0-2) Urine WBC 1-4 /HPF (0-4) Urine Renal Epithelial Cells Occ /LPF Urine Bacteria 0 /HPF (0-FEW) Urine Hyaline Casts Moderate /HPF Urine Granular Casts Occasional /HPF Urine Mucus Mod /LPF Glucose (Fingerstick) 44 mg/dL (70-99) 100 mg/dL (70-99) Test 05/12/17 20:42 05/13/17 04:34 05/13/17 07:41 Glucose (Fingerstick) 156 mg/dL (70-99) 104 mg/dL (70-99) White Blood Count 8.8 x10^3/uL (4.0-11.0) Red Blood Count 3.96 x10^6/uL (4.30-5.70) Hemoglobin 11.9 g/dL (13.0-17.5) Hematocrit 35.5 % (39.0-53.0) Mean Corpuscular Volume 90 fL (79-100) Mean Corpuscular Hemoglobin 30 pg (25-35) Mean Corpuscular Hemoglobin Concent 34 g/dL (31-37) Red Cell Distribution Width 13.5 % (11.5-14.5) Platelet Count 259 x10^3/uL (140-400) Neutrophils (%) (Auto) 81 % (31-73) Lymphocytes (%) (Auto) 10 % (24-48) Monocytes (%) (Auto) 8 % (0-9) Eosinophils (%) (Auto) 0 % (0-3) Basophils (%) (Auto) 0 % (0-3) Neutrophils # (Auto) 7.1 x10^3uL (1.8-7.7) Lymphocytes # (Auto) 0.9 x10^3/uL (1.0-4.8) Monocytes # (Auto) 0.7 x10^3/uL (0.0-1.1) Eosinophils # (Auto) 0.0 x10^3/uL (0.0-0.7) Basophils # (Auto) 0.0 x10^3/uL (0.0-0.2) Sodium Level 141 mmol/L (136-145) Potassium Level 4.0 mmol/L (3.5-5.1) Chloride Level 105 mmol/L (98-107) Carbon Dioxide Level 32 mmol/L (21-32) Anion Gap 4 (6-14) Blood Urea Nitrogen 19 mg/dL (8-26) Creatinine 1.0 mg/dL (0.7-1.3) Estimated GFR (Cockcroft-Gault) 72.8 Glucose Level 98 mg/dL (70-99) Calcium Level 8.8 mg/dL (8.5-10.1) Assessment/Plan Assessment/Plan abdominal pain cholelithiasis Small amount of perisplenic fluid that appears to be subcapsular CAD, COPD, DM, PVD on plavix hold plavix monitor hgb, appears small fluid perisplenic--likely observation will check GB sono today FLORENCE MCBRIDE MD 05/13/17 1633: CONSULT Allergies Allergies: Coded Allergies: No Known Drug Allergies (Unverified , 02/15/16) Assessment/Plan Assessment/Plan Pt seen and examined. Agree with Ms. Breen's note Pt with c/o epigastric pain, after eating abd soft, Nd, NTTP d/w pt and pt's family, d/w Dr. Anne suspect pain is secondary to splenic hematoma gallstones may be a part of the issue. Recommend holding plavix and consider elective cholecystectomy Thanks for consult! ILEANA BREEN APRN May 13, 2017 09:11 FLORENCE MCBRIDE MD May 13, 2017 16:33
[2017-05-13] MEDS: CHOLECALCIFEROL (VITAMIN D3) 1,000 UNIT TABLET PO SCH (09:44)
[2017-05-13] MEDS: ALPRAZolam 0.25 MG TABLET PO SCH (09:44)
[2017-05-13] MEDS: LOSARTAN POTASSIUM 50 MG TABLET. PO SCH (09:44)
[2017-05-13] MEDS: ASPIRIN CHEWABLE 81 MG TABLET. PO SCH (09:44)
[2017-05-13] MEDS: glipiZIDE 5 MG TABLET PO SCH ×2 (09:44→17:09)
[2017-05-13] MEDS: MAGNESIUM OXIDE 400 MG TABLET PO SCH (09:45)
[2017-05-13] MEDS: DUTASTERIDE 0.5 MG CAPSULE PO SCH (09:45)
[2017-05-13] MEDS: PANTOPRAZOLE 40 MG TABLET.DR. PO SCH (09:45)
[2017-05-13] MEDS: SUCRALFATE 1 GM TABLET. PO SCH ×4 (09:45→20:58)
[2017-05-13] MEDS: amLODIPine BESYLATE 10 MG TABLET PO SCH (09:45)
--- NOTE | 2017-05-13 09:46 | RAD ---
Limited right upper quadrant abdominal ultrasound 05/13/2017 Indication: Right upper quadrant pain. Cholelithiasis. Comparison study: CT of the abdomen and pelvis, May 12, 2017 Discussion: Ultrasound evaluation of right upper quadrant was performed. Static images were submitted to PACS. Partially visualized pancreas is unremarkable. Visualized portions of the IVC are unremarkable. The liver is grossly normal in appearance without evidence of intrahepatic biliary dilatation. No focal hepatic lesion is seen. Liver is normal in size with 15.6 cm longitudinally. A comminution of small stones and sludge is present within the gallbladder lumen. No pericholecystic fluid is seen. No evidence of gallbladder wall thickening is identified. The common bile duct is nondilated measuring 3 mm in diameter. The right kidney is normal in appearance measuring 11.9 cm in length. Impression: Cholelithiasis and sludge within the gallbladder lumen , without sonographic evidence of acute cholecystitis
[2017-05-13 10:30] VITALS: BP 122/56
[2017-05-13 14:30] VITALS: BP 124/54
[2017-05-13] MEDS ORDERED: INSULIN ASPART 300 UNITS/3 ML INSULN.PEN SQ SCH (17:00)
[2017-05-13] MEDS: INSULIN ASPART 300 UNITS/3 ML INSULN.PEN SQ SCH ×2 (17:16→21:03)
--- NOTE | 2017-05-13 17:49 | PDOC ---
PROGRESS NOTES Subjective Subjective Patient is feeling better today. Able to tolerate the by mouth route. Objective Objective Vital Signs Date Time Temp Pulse Resp B/P (MAP) Pulse Ox O2 Delivery O2 Flow Rate FiO2 05/13/17 16:16 97 05/13/17 14:30 99.9 91 18 124/54 (77) Room Air 99.9 Intake and Output 05/14/17 07:00 Intake Total 1560 ml Balance 1560 ml Intake Oral 1560 ml # Voids 2 Physical Exam Physical Exam Breath sounds are decreased, minimal wheezing, no significant changes from yesterday. Heart no changes. Abdomen less tenderness. Assessment Assessment The patient seems to be doing better today. Hydration is better. The case was discussed with Dr. Paez and the plan is to do the cholecystectomy probably next week after the patient has been off the Plavix for one week. At that time he may check about the spleen problem while he is in there with the scope. I agree with this plan and I have discussed it with the patient and he is in agreement with this. If he is stable in the morning will discharge him then. Problems Medical Problems: (1) Abdominal pain Status: Acute Comment Review of Relevant I have reviewed the following items home (where applicable) has been applied. Labs Laboratory Tests Test 05/12/17 12:31 05/12/17 15:22 05/12/17 17:08 05/12/17 18:14 White Blood Count 10.7 x10^3/uL (4.0-11.0) Red Blood Count 4.36 x10^6/uL (4.30-5.70) Hemoglobin 13.5 g/dL (13.0-17.5) Hematocrit 39.6 % (39.0-53.0) Mean Corpuscular Volume 91 fL (79-100) Mean Corpuscular Hemoglobin 31 pg (25-35) Mean Corpuscular Hemoglobin Concent 34 g/dL (31-37) Red Cell Distribution Width 13.7 % (11.5-14.5) Platelet Count 290 x10^3/uL (140-400) Neutrophils (%) (Auto) 83 % (31-73) Lymphocytes (%) (Auto) 10 % (24-48) Monocytes (%) (Auto) 6 % (0-9) Eosinophils (%) (Auto) 0 % (0-3) Basophils (%) (Auto) 0 % (0-3) Neutrophils # (Auto) 8.9 x10^3uL (1.8-7.7) Lymphocytes # (Auto) 1.1 x10^3/uL (1.0-4.8) Monocytes # (Auto) 0.7 x10^3/uL (0.0-1.1) Eosinophils # (Auto) 0.0 x10^3/uL (0.0-0.7) Basophils # (Auto) 0.0 x10^3/uL (0.0-0.2) Sodium Level 140 mmol/L (136-145) Potassium Level 3.7 mmol/L (3.5-5.1) Chloride Level 102 mmol/L (98-107) Carbon Dioxide Level 30 mmol/L (21-32) Anion Gap 8 (6-14) Blood Urea Nitrogen 25 mg/dL (8-26) Creatinine 1.2 mg/dL (0.7-1.3) Estimated GFR (Cockcroft-Gault) 59.0 BUN/Creatinine Ratio 21 (6-20) Glucose Level 100 mg/dL (70-99) Calcium Level 9.1 mg/dL (8.5-10.1) Total Bilirubin 0.2 mg/dL (0.2-1.0) Aspartate Amino Transf (AST/SGOT) 14 U/L (15-37) Alanine Aminotransferase (ALT/SGPT) 9 U/L (16-63) Alkaline Phosphatase 92 U/L (46-116) Total Protein 6.6 g/dL (6.4-8.2) Albumin 2.3 g/dL (3.4-5.0) Albumin/Globulin Ratio 0.5 (1.0-1.7) Lipase 42 U/L (73-393) Urine Collection Type Unknown Urine Color Yellow Urine Clarity Clear Urine pH 6.0 Urine Specific [place] >=1.030 Urine Protein >=300 mg/dL (NEG-TRACE) Urine Glucose (UA) Negative mg/dL (NEG) Urine Ketones (Stick) Negative mg/dL (NEG) Urine Blood Negative (NEG) Urine Nitrite Negative (NEG) Urine Bilirubin Negative (NEG) Urine Urobilinogen Dipstick 0.2 mg/dL (0.2 mg/dL) Urine Leukocyte Esterase Negative (NEG) Urine RBC 0 /HPF (0-2) Urine WBC 1-4 /HPF (0-4) Urine Renal Epithelial Cells Occ /LPF Urine Bacteria 0 /HPF (0-FEW) Urine Hyaline Casts Moderate /HPF Urine Granular Casts Occasional /HPF Urine Mucus Mod /LPF Glucose (Fingerstick) 44 mg/dL (70-99) 100 mg/dL (70-99) Test 05/12/17 20:42 05/13/17 04:34 05/13/17 07:41 05/13/17 11:53 Glucose (Fingerstick) 156 mg/dL (70-99) 104 mg/dL (70-99) 202 mg/dL (70-99) White Blood Count 8.8 x10^3/uL (4.0-11.0) Red Blood Count 3.96 x10^6/uL (4.30-5.70) Hemoglobin 11.9 g/dL (13.0-17.5) Hematocrit 35.5 % (39.0-53.0) Mean Corpuscular Volume 90 fL (79-100) Mean Corpuscular Hemoglobin 30 pg (25-35) Mean Corpuscular Hemoglobin Concent 34 g/dL (31-37) Red Cell Distribution Width 13.5 % (11.5-14.5) Platelet Count 259 x10^3/uL (140-400) Neutrophils (%) (Auto) 81 % (31-73) Lymphocytes (%) (Auto) 10 % (24-48) Monocytes (%) (Auto) 8 % (0-9) Eosinophils (%) (Auto) 0 % (0-3) Basophils (%) (Auto) 0 % (0-3) Neutrophils # (Auto) 7.1 x10^3uL (1.8-7.7) Lymphocytes # (Auto) 0.9 x10^3/uL (1.0-4.8) Monocytes # (Auto) 0.7 x10^3/uL (0.0-1.1) Eosinophils # (Auto) 0.0 x10^3/uL (0.0-0.7) Basophils # (Auto) 0.0 x10^3/uL (0.0-0.2) Sodium Level 141 mmol/L (136-145) Potassium Level 4.0 mmol/L (3.5-5.1) Chloride Level 105 mmol/L (98-107) Carbon Dioxide Level 32 mmol/L (21-32) Anion Gap 4 (6-14) Blood Urea Nitrogen 19 mg/dL (8-26) Creatinine 1.0 mg/dL (0.7-1.3) Estimated GFR (Cockcroft-Gault) 72.8 Glucose Level 98 mg/dL (70-99) Calcium Level 8.8 mg/dL (8.5-10.1) Test 05/13/17 16:13 Glucose (Fingerstick) 210 mg/dL (70-99) Laboratory Tests Test 05/12/17 18:14 05/12/17 20:42 05/13/17 04:34 05/13/17 07:41 Glucose (Fingerstick) 100 mg/dL (70-99) 156 mg/dL (70-99) 104 mg/dL (70-99) White Blood Count 8.8 x10^3/uL (4.0-11.0) Red Blood Count 3.96 x10^6/uL (4.30-5.70) Hemoglobin 11.9 g/dL (13.0-17.5) Hematocrit 35.5 % (39.0-53.0) Mean Corpuscular Volume 90 fL (79-100) Mean Corpuscular Hemoglobin 30 pg (25-35) Mean Corpuscular Hemoglobin Concent 34 g/dL (31-37) Red Cell Distribution Width 13.5 % (11.5-14.5) Platelet Count 259 x10^3/uL (140-400) Neutrophils (%) (Auto) 81 % (31-73) Lymphocytes (%) (Auto) 10 % (24-48) Monocytes (%) (Auto) 8 % (0-9) Eosinophils (%) (Auto) 0 % (0-3) Basophils (%) (Auto) 0 % (0-3) Neutrophils # (Auto) 7.1 x10^3uL (1.8-7.7) Lymphocytes # (Auto) 0.9 x10^3/uL (1.0-4.8) Monocytes # (Auto) 0.7 x10^3/uL (0.0-1.1) Eosinophils # (Auto) 0.0 x10^3/uL (0.0-0.7) Basophils # (Auto) 0.0 x10^3/uL (0.0-0.2) Sodium Level 141 mmol/L (136-145) Potassium Level 4.0 mmol/L (3.5-5.1) Chloride Level 105 mmol/L (98-107) Carbon Dioxide Level 32 mmol/L (21-32) Anion Gap 4 (6-14) Blood Urea Nitrogen 19 mg/dL (8-26) Creatinine 1.0 mg/dL (0.7-1.3) Estimated GFR (Cockcroft-Gault) 72.8 Glucose Level 98 mg/dL (70-99) Calcium Level 8.8 mg/dL (8.5-10.1) Test 05/13/17 11:53 05/13/17 16:13 Glucose (Fingerstick) 202 mg/dL (70-99) 210 mg/dL (70-99) Medications Current Medications Ondansetron HCl (Zofran) 4 mg 1X ONCE IV Last administered on 05/12/17 13:55 ; Start 05/12/17 at 13:00; Stop 05/12/17 at 13:01; Status DC Fentanyl Citrate (Fentanyl 2ml Vial) 50 mcg 1X ONCE IV Last administered on 13:56; Start 05/12/17 at 13:15; Stop 05/12/17 at 13:16; Status DC Iohexol (Omnipaque 300 Mg/ml) 60 ml 1X ONCE IV Last administered on 14:39; Start 05/12/17 at 14:45; Stop 05/12/17 at 14:46; Status DC Info (Do NOT chart on this entry -- for MONITORING) 1 each PRN DAILY PRN MC SEE COMMENTS; Start 05/12/17 at 14:45; Stop 05/14/17 at 14:44 Ondansetron HCl (Zofran) 4 mg PRN Q8HRS PRN IV NAUSEA/VOMITING; Start at 15:45; Stop 05/13/17 at 15:44; Status DC Morphine Sulfate 2 mg PRN Q2HR PRN IV PAIN; Start 05/12/17 at 15:45; Stop at 15:44; Status DC Sodium Chloride 1,000 ml @ 80 mls/hr [id number] IV Last administered on 16:13; Start 05/12/17 at 16:15; Stop 05/13/17 at 04:44; Status DC Fentanyl Citrate (Fentanyl 2ml Vial) 50 mcg PRN Q3HRS PRN IV PAIN; Start 05/12 at 17:15 Dextrose (Dextrose 50%-Water Syringe) 12.5 gm PRN Q15MIN PRN IV SEE COMMENTS Last administered on 05/12/17 17:22; Start 05/12/17 at 17:15 Alprazolam (Xanax) 0.25 mg DAILY PO Last administered on 05/13/17 09:44; Start 05/13/17 at 09:00 Aspirin (Children'S Aspirin) 81 mg DAILY PO Last administered on 05/13/17 09: 44; Start 05/13/17 at 09:00 Clopidogrel Bisulfate (Plavix) 75 mg DAILY PO ; Start 05/13/17 at 09:00; Stop 05/13/17 at 09:14; Status DC Dutasteride (Avodart) 0.5 mg DAILY PO Last administered on 05/13/17 09:45; Start 05/13/17 at 09:00 Magnesium Oxide (Magnesium Oxide) 400 mg DAILY PO Last administered on 09:45; Start 05/13/17 at 09:00 Simvastatin (Zocor) 40 mg QHS PO Last administered on 05/12/17 20:55; Start 05/12/17 at 21:00 Sucralfate (Carafate) 1 gm QID PO Last administered on 05/13/17 17:09; Start 05/12/17 at 21:00 Non-Formulary Medication 2 puff Q4HRS INH ; Start 05/12/17 at 20:00; Status UNV Non-Formulary Medication 1 tab QODAY PO ; Start 05/14/17 at 09:00; Status UNV Non-Formulary Medication 2 puff BID IH ; Start 05/12/17 at 21:00; Status UNV Bumetanide (Bumex) 1 mg QODAY PO Last administered on 05/13/17 09:44; Start 05/13/17 at 09:00 Vitamin D (Vitamin D3) 1,000 unit DAILY PO Last administered on 05/13/17 09: 44; Start 05/13/17 at 09:00 Pantoprazole Sodium (Protonix) 40 mg DAILYAC PO Last administered on 09:45; Start 05/13/17 at 07:30 Non-Formulary Medication 2 each BID94 PO ; Start 05/13/17 at 09:00; Status UNV Insulin Detemir (Levemir) 30 units QHS SQ Last administered on 05/12/17 21:01 ; Start 05/12/17 at 21:00; Stop 05/13/17 at 07:12; Status DC Non-Formulary Medication 2 puff DAILY IH ; Start 05/13/17 at 09:00; Status UNV Albuterol/ Ipratropium (Duoneb) 3 ml RTQID NEB Last administered on 05/13/17 16:15; Start 05/12/17 at 20:00 Budesonide (Pulmicort) 0.5 mg RTBID NEB Last administered on 05/13/17 07:27; Start 05/12/17 at 20:00 Amlodipine Besylate (Norvasc) 10 mg DAILY PO Last administered on 05/13/17 09 :45; Start 05/13/17 at 09:00 Losartan Potassium (Cozaar) 100 mg DAILY PO Last administered on 05/13/17 09: 44; Start 05/13/17 at 09:00 Glipizide (Glucotrol) 10 mg BIDBFRMEAL PO Last administered on 05/13/17 17:09 ; Start 05/13/17 at 07:30 Metformin HCl (Glucophage) 1,000 mg BIDWMEALS PO ; Start 05/14/17 at 17:00 Insulin Detemir (Levemir) 12 units QHS SQ ; Start 05/13/17 at 21:00 Insulin Aspart (NovoLOG) 0-5 UNITS TIDWMEALS SQ ; Start 05/13/17 at 17:00; Stop 05/13/17 at 17:00; Status DC Insulin Aspart (NovoLOG) 0-5 UNITS TIDACHC SQ Last administered on 05/13/17 17:16; Start 05/13/17 at 17:00 Active Scripts Active Reported Exforge 10-320 Mg Tablet (Amlodipine/Valsartan) 1 Each Tablet 1 Tab PO QODAY Ventolin Hfa Inhaler (Albuterol Sulfate) 18 Gm Hfa.aer.ad 2 Puff INH Q4HRS Bumetanide 2 Mg Tablet 2 Mg PO EVERY OTHER DAY Magnesium Oxide 400 Mg Tablet 1 Tab PO DAILY Sucralfate 1 Gm Tablet 1 Tab PO QID Spiriva (Tiotropium Myra) 18 Mcg Cap.w.dev 2 Puff IH DAILY Symbicort 160-4.5 Mcg Inhaler (Budesonide/Formoterol Fumarate) 10.2 Gm Hfa.aer.ad 2 Puff IH BID Lantus (Insulin Glargine,Hum.rec.anlog) 100 Unit/1 Ml Vial 12 Unit SQ HS Glipizide-Metformin 5-500 Mg (Glipizide/Metformin Hcl) 1 Each Tablet 2 Each PO BID94 Nexium Capsule (Esomeprazole Magnesium) 40 Mg Capsule.dr 1 Cap PO DAILY Avodart (Dutasteride) 0.5 Mg Capsule 1 Cap PO DAILY Simvastatin 40 Mg Tablet 1 Tab PO QHS Aspirin 81 Mg Tab.chew 1 Tab PO DAILY Alprazolam 0.25 Mg Tablet 1 Tab PO DAILY Vitamin D (Cholecalciferol (Vitamin D3)) 1,000 Unit Capsule 1 Cap PO DAILY Clopidogrel (Clopidogrel Bisulfate) 75 Mg Tablet 1 Tab PO DAILY Vitals/I & O Vital Sign - Last 24 Hours 05/12/17 05/12/17 05/12/17 05/12/17 17:55 19:00 19:15 20:21 Temp 97.5 97.5 Pulse 102 Resp 18 B/P (MAP) 151/76 (101) Pulse Ox 98 97 O2 Delivery Room Air Room Air Room Air 05/12/17 05/13/17 05/13/17 05/13/17 23:00 03:00 07:30 07:32 Temp 98.3 98.8 97.7 98.3 98.8 97.7 Pulse 63 94 99 Resp 18 18 18 B/P (MAP) 136/61 (86) 108/56 (73) 108/55 (72) Pulse Ox 98 92 100 100 O2 Delivery Room Air Room Air Room Air 05/13/17 05/13/17 05/13/17 05/13/17 08:20 09:44 09:45 10:30 Temp 96.3 96.3 Pulse 99 99 99 Resp 18 B/P (MAP) 108/55 108/55 122/56 (78) Pulse Ox 94 O2 Delivery Room Air Room Air 05/13/17 05/13/17 05/13/17 11:40 14:30 16:16 Temp 99.9 99.9 Pulse 91 Resp 18 B/P (MAP) 124/54 (77) Pulse Ox 93 94 97 O2 Delivery Room Air Intake and Output 05/13/17 05/13/17 05/14/17 15:00 23:00 07:00 Intake Total 1380 ml 180 ml Balance 1380 ml 180 ml AUGUSTINA DECKER MD May 13, 2017 17:49
[2017-05-13 19:00] VITALS: BP 156/71
[2017-05-13] MEDS: SIMVASTATIN 40 MG TABLET. PO SCH (20:58)
[2017-05-13] MEDS ORDERED: INSULIN DETEMIR 300 UNITS/3 ML INSULN.PEN. SQ SCH (21:00)
[2017-05-13 23:00] VITALS: BP 129/72
[2017-05-14 03:00] VITALS: BP 146/62
[2017-05-14 07:00] VITALS: BP 160/54
[2017-05-14] MEDS: glipiZIDE 5 MG TABLET PO SCH (07:30)
[2017-05-14] MEDS: INSULIN ASPART 300 UNITS/3 ML INSULN.PEN SQ SCH ×2 (07:30→13:17)
[2017-05-14] MEDS: DEXTROSE 50% 25 GM / 50ML DISP.SYRIN. IV PRN (07:41)
[2017-05-14] MEDS: IPRATRPIUM/ALBUTEROL 0.5/2.5MG 3 ML NEBU. NEB SCH ×2 (08:04→11:27)
[2017-05-14] MEDS: BUDESONIDE 0.5 MG/2 ML NEBU. NEB SCH (08:05)
[2017-05-14] MEDS: MAGNESIUM OXIDE 400 MG TABLET PO SCH (08:43)
[2017-05-14] MEDS: ALPRAZolam 0.25 MG TABLET PO SCH (08:43)
[2017-05-14] MEDS: SUCRALFATE 1 GM TABLET. PO SCH ×2 (08:43→13:03)
[2017-05-14] MEDS: ASPIRIN CHEWABLE 81 MG TABLET. PO SCH (08:43)
[2017-05-14] MEDS: CHOLECALCIFEROL (VITAMIN D3) 1,000 UNIT TABLET PO SCH (08:43)
[2017-05-14] MEDS: DUTASTERIDE 0.5 MG CAPSULE PO SCH (08:43)
[2017-05-14] MEDS: PANTOPRAZOLE 40 MG TABLET.DR. PO SCH (08:43)
[2017-05-14] MEDS: LOSARTAN POTASSIUM 50 MG TABLET. PO SCH (08:44)
[2017-05-14] MEDS: amLODIPine BESYLATE 10 MG TABLET PO SCH (08:45)
[2017-05-14] MEDS ORDERED: AMLODIPINE PO SCH (09:00)
[2017-05-14] MEDS ORDERED: VALSARTAN PO SCH (09:00)
--- NOTE | 2017-05-14 10:56 | PDOC ---
SURGICAL PROGRESS NOTE Subjective Pt reports feeling much better today, abdirashid PO without pain Vital Signs Vital Signs Date Time Temp Pulse Resp B/P (MAP) Pulse Ox O2 Delivery O2 Flow Rate FiO2 05/14/17 08:45 94 160/54 05/14/17 08:00 Room Air 05/14/17 07:00 97.9 19 96 97.9 I&O Intake and Output 05/14/17 07:00 Intake Total 2160 ml Balance 2160 ml Intake Oral 2160 ml # Voids 4 General: Alert, Oriented X3, Cooperative, No acute distress Abdomen: Soft, No tenderness Labs Laboratory Tests Test 05/12/17 12:31 05/12/17 15:22 05/12/17 17:08 05/12/17 18:14 White Blood Count 10.7 x10^3/uL (4.0-11.0) Red Blood Count 4.36 x10^6/uL (4.30-5.70) Hemoglobin 13.5 g/dL (13.0-17.5) Hematocrit 39.6 % (39.0-53.0) Mean Corpuscular Volume 91 fL (79-100) Mean Corpuscular Hemoglobin 31 pg (25-35) Mean Corpuscular Hemoglobin Concent 34 g/dL (31-37) Red Cell Distribution Width 13.7 % (11.5-14.5) Platelet Count 290 x10^3/uL (140-400) Neutrophils (%) (Auto) 83 % (31-73) Lymphocytes (%) (Auto) 10 % (24-48) Monocytes (%) (Auto) 6 % (0-9) Eosinophils (%) (Auto) 0 % (0-3) Basophils (%) (Auto) 0 % (0-3) Neutrophils # (Auto) 8.9 x10^3uL (1.8-7.7) Lymphocytes # (Auto) 1.1 x10^3/uL (1.0-4.8) Monocytes # (Auto) 0.7 x10^3/uL (0.0-1.1) Eosinophils # (Auto) 0.0 x10^3/uL (0.0-0.7) Basophils # (Auto) 0.0 x10^3/uL (0.0-0.2) Sodium Level 140 mmol/L (136-145) Potassium Level 3.7 mmol/L (3.5-5.1) Chloride Level 102 mmol/L (98-107) Carbon Dioxide Level 30 mmol/L (21-32) Anion Gap 8 (6-14) Blood Urea Nitrogen 25 mg/dL (8-26) Creatinine 1.2 mg/dL (0.7-1.3) Estimated GFR (Cockcroft-Gault) 59.0 BUN/Creatinine Ratio 21 (6-20) Glucose Level 100 mg/dL (70-99) Calcium Level 9.1 mg/dL (8.5-10.1) Total Bilirubin 0.2 mg/dL (0.2-1.0) Aspartate Amino Transf (AST/SGOT) 14 U/L (15-37) Alanine Aminotransferase (ALT/SGPT) 9 U/L (16-63) Alkaline Phosphatase 92 U/L (46-116) Total Protein 6.6 g/dL (6.4-8.2) Albumin 2.3 g/dL (3.4-5.0) Albumin/Globulin Ratio 0.5 (1.0-1.7) Lipase 42 U/L (73-393) Urine Collection Type Unknown Urine Color Yellow Urine Clarity Clear Urine pH 6.0 Urine Specific [place] >=1.030 Urine Protein >=300 mg/dL (NEG-TRACE) Urine Glucose (UA) Negative mg/dL (NEG) Urine Ketones (Stick) Negative mg/dL (NEG) Urine Blood Negative (NEG) Urine Nitrite Negative (NEG) Urine Bilirubin Negative (NEG) Urine Urobilinogen Dipstick 0.2 mg/dL (0.2 mg/dL) Urine Leukocyte Esterase Negative (NEG) Urine RBC 0 /HPF (0-2) Urine WBC 1-4 /HPF (0-4) Urine Renal Epithelial Cells Occ /LPF Urine Bacteria 0 /HPF (0-FEW) Urine Hyaline Casts Moderate /HPF Urine Granular Casts Occasional /HPF Urine Mucus Mod /LPF Glucose (Fingerstick) 44 mg/dL (70-99) 100 mg/dL (70-99) Test 05/12/17 20:42 05/13/17 04:34 05/13/17 07:41 05/13/17 11:53 Glucose (Fingerstick) 156 mg/dL (70-99) 104 mg/dL (70-99) 202 mg/dL (70-99) White Blood Count 8.8 x10^3/uL (4.0-11.0) Red Blood Count 3.96 x10^6/uL (4.30-5.70) Hemoglobin 11.9 g/dL (13.0-17.5) Hematocrit 35.5 % (39.0-53.0) Mean Corpuscular Volume 90 fL (79-100) Mean Corpuscular Hemoglobin 30 pg (25-35) Mean Corpuscular Hemoglobin Concent 34 g/dL (31-37) Red Cell Distribution Width 13.5 % (11.5-14.5) Platelet Count 259 x10^3/uL (140-400) Neutrophils (%) (Auto) 81 % (31-73) Lymphocytes (%) (Auto) 10 % (24-48) Monocytes (%) (Auto) 8 % (0-9) Eosinophils (%) (Auto) 0 % (0-3) Basophils (%) (Auto) 0 % (0-3) Neutrophils # (Auto) 7.1 x10^3uL (1.8-7.7) Lymphocytes # (Auto) 0.9 x10^3/uL (1.0-4.8) Monocytes # (Auto) 0.7 x10^3/uL (0.0-1.1) Eosinophils # (Auto) 0.0 x10^3/uL (0.0-0.7) Basophils # (Auto) 0.0 x10^3/uL (0.0-0.2) Sodium Level 141 mmol/L (136-145) Potassium Level 4.0 mmol/L (3.5-5.1) Chloride Level 105 mmol/L (98-107) Carbon Dioxide Level 32 mmol/L (21-32) Anion Gap 4 (6-14) Blood Urea Nitrogen 19 mg/dL (8-26) Creatinine 1.0 mg/dL (0.7-1.3) Estimated GFR (Cockcroft-Gault) 72.8 Glucose Level 98 mg/dL (70-99) Calcium Level 8.8 mg/dL (8.5-10.1) Test 05/13/17 16:13 05/13/17 20:55 05/14/17 07:29 05/14/17 08:05 Glucose (Fingerstick) 210 mg/dL (70-99) 261 mg/dL (70-99) 43 mg/dL (70-99) 212 mg/dL (70-99) Laboratory Tests Test 05/13/17 11:53 05/13/17 16:13 05/13/17 20:55 05/14/17 07:29 Glucose (Fingerstick) 202 mg/dL (70-99) 210 mg/dL (70-99) 261 mg/dL (70-99) 43 mg/dL (70-99) Test 05/14/17 08:05 Glucose (Fingerstick) 212 mg/dL (70-99) Problem List Problems Medical Problems: (1) Abdominal pain Status: Acute Assessment/Plan splenic hematoma ADAT and OK to d/c we discussed elective lap shannen with tammi. At this time, patient elects to avoid surgery, which is reasonable he is encouraged to follow up if he has any problems. Problems: FLORENCE MCBRIDE MD May 14, 2017 10:56
[2017-05-14 11:00] VITALS: BP 136/55
--- NOTE | 2017-06-05 15:59 | PDOC3 ---
Discharge Summary* Date of Admission: May 12, 2017 Date of Discharge: May 14, 2017 Admitting Diagnosis Problems Medical Problems: (1) Abdominal pain Status: Acute Problems: Final Diagnosis Abdominal pain Cholecystitis Cholelithiasis Peripheral vascular disease COPD Coronary artery disease CONSULTS Surgery Brief Hospital Course Mr. Pierson is a 77 old gentleman that has a known history of hypertension, peripheral vascular disease, COPD, coronary artery disease. The patient came in with nausea vomiting and severe abdominal pain. He was seen in the emergency room where he was evaluated and he was decided to admit him for further workup and treatment. After the initial evaluation multiple tests were done please see the chart for those reports. The patient had a CT scan that showed cholecystitis and cholelithiasis but it also showed a possible splenic hematoma. In view of this I consulted the surgeons and they came and evaluated the patient and he was felt that the splenic problem may be a chronic issue and that nothing needed to be done at this time and that the patient needed to have a cholecystectomy however he is on aspirin and Plavix because of his cardiovascular issues and it was recommended to wait for a couple of weeks off the anticoagulation before doing any surgery. This was discussed with the patient and his and they agree with this plan. On 05/14/2017 the patient was discharged home in stable condition. Please see the MRAD for the list of discharge medications. The situation, options, diet, activity, follow-up and medications were discussed with the patient and his prior to discharge. He is to see me next week in the office and he needs to call this surgeon's office to set up for an appointment for the cholecystectomy. Scheduled Alprazolam (Alprazolam), 1 TAB PO DAILY, (Reported) Amlodipine/Valsartan (Exforge 10-320 Mg Tablet), 1 TAB PO QODAY, (Reported) Aspirin (Aspirin), 1 TAB PO DAILY, (Reported) Budesonide/Formoterol Fumarate (Symbicort 160-4.5 Mcg Inhaler), 2 PUFF IH BID, ( Reported) Bumetanide (Bumetanide), 2 MG PO every other day, (Reported) Cholecalciferol (Vitamin D3) (Vitamin D), 1 CAP PO DAILY, (Reported) Clopidogrel Bisulfate (Clopidogrel), 1 TAB PO DAILY, (Reported) Dutasteride (Avodart), 1 CAP PO DAILY, (Reported) Esomeprazole Magnesium (Nexium Capsule), 1 CAP PO DAILY, (Reported) Glipizide/Metformin Hcl (Glipizide-Metformin 5-500 Mg), 2 EACH PO BID94, ( Reported) Insulin Glargine,Hum.rec.anlog (Lantus), 12 UNIT SQ HS, (Reported) Magnesium Oxide (Magnesium Oxide), 1 TAB PO DAILY, (Reported) Simvastatin (Simvastatin), 1 TAB PO QHS, (Reported) Sucralfate (Sucralfate), 1 TAB PO QID, (Reported) Tiotropium [place] (Spiriva), 2 PUFF IH DAILY, (Reported) Discontinued Medications Albuterol Sulfate (Ventolin Hfa Inhaler), 2 PUFF INH Q4HRS, (Reported) Time Spent Total time spent with patient [] minutes for coordination of care, counseling, and education. AUGUSTINA DECKER MD Jun 05, 2017 15:59
== END 2017-05-14 14:30 | disposition home or self-care (01) | DRG 445 ==
LOC: ER 12:08 → 5 NORTH 15:30
PROVIDERS: ADMIT Internal Medicine Cardiovascular Disease; ATTEND Internal Medicine Cardiovascular Disease
DX: K80.20 Calculus of gallbladder without cholecystitis without obstruction (principal); E44.1 Mild protein-calorie malnutrition; D73.5 Infarction of spleen; E11.51 Type 2 diabetes mellitus with diabetic peripheral angiopathy without gangrene; J44.9 Chronic obstructive pulmonary disease, unspecified; E78.5 Hyperlipidemia, unspecified; F17.200 Nicotine dependence, unspecified, uncomplicated; I10 Essential (primary) hypertension; I25.10 Atherosclerotic heart disease of native coronary artery without angina pectoris; M19.90 Unspecified osteoarthritis, unspecified site
CPT/HCPCS: 36415; 74177; 76705; 80048; 80053; 81001; 82962; 83690; 85025; 93005; 94250; 94640; 96374; 96375; J1815; J2405; J3010; J7042; J7620; J7626; Q9967; 99285-25